=== PATIENT | male | born 1960 | race Caucasian/White ===

== ENCOUNTER 2020-05-17 08:03 | Outpatient (CLI) | payer BC ==
[2020-05-17 08:55] LABS: Estimated GFR-MDRD - POC Greater than 90
[2020-05-17] MEDS ORDERED: Iopamidol 370 76% 100 ML VIAL ONE (13:56)
== END 2020-05-17 08:04 | disposition home or self-care (01) ==
LOC: CT 08:03
PROVIDERS: ATTEND Internal Medicine Gastroenterology
DX: D49.0 Neoplasm of unspecified behavior of digestive system (principal); K63.89 Other specified diseases of intestine; R93.422 Abnormal radiologic findings on diagnostic imaging of left kidney
CPT/HCPCS: 74177; 82565; Q9967

== ENCOUNTER 2020-05-28 11:22 | Outpatient (CLI) | payer BC ==
[~2020-05-28 11:22] MED LIST: Iopamidol 370 76% 100 ML VIAL ONE
--- NOTE | 2020-05-28 13:20 | CT ---
CT CHEST WITH CONTRAST CLINICAL INDICATION: Tumor involving ileum. COMPARISON: None FINDINGS: Aorta: Minimal vascular calcifications at the aortic arch and origin of the left subclavian artery. T horacic aorta is normal in caliber without evidence of an aortic dissection. Lungs: Approximately 4 mm pulmonary nodule is seen in the left lower lobe (image 48, series 3). This is too small to accurately characterize. No additional discrete pulmonary nodule, mass, or pleural effusion is seen in the lungs bilaterally. The large airways are patent. Mediastinum: No enlarged lymph nodes are seen by CT size criteria. Vascular calcifications are seen i n the coronary arteries. Thyroid gland: Normal CT appearance. Osseous structures: No suspicious lytic or sclerotic osseous lesion is identified. Chest wall: No abnormality visualized. Upper abdomen: Mildly prominent lymph nodes are seen in the mindy hepatis as described on recent CT a bdomen. Remainder the visualized upper abdomen has a normal CT appearance. IMPRESSION: 1. Too small to characterize 4 mm pulmonary nodule left lower lobe. No additional pulmonary nodule or mass is seen. 2. Mildly prominent lymph nodes in the region of mindy hepatis also seen on CT abdomen obtained on .
--- NOTE | 2020-05-29 15:24 | NM ---
NM Tumor Localization Octreo HISTORY: Malignant carcinoid tumor of the ileum COMPARISON: None CORRELATION: CT chest of 05/28/[address] abdomen and pelvis of 05/17/2020 RADIOPHARMACEUTICAL: 5.5 mCi indium-111 Octreoscan injected intravenously FINDINGS: Whole body planar images and SPECT-CT images of the abdomen were obtained 24 hours after the intraven ous injection of the radiopharmaceutical. There is physiologic activity in the liver, spleen, kidneys, bladder, bowel. No abnormal foci of increased tracer localization are seen. IMPRESSION: Normal exam.
== END 2020-05-28 11:23 | disposition home or self-care (01) ==
LOC: CT 11:22
PROVIDERS: ATTEND Internal Medicine Hematology & Oncology
DX: C7A.012 Malignant carcinoid tumor of the ileum (principal); C7A.8 Other malignant neuroendocrine tumors; R91.1 Solitary pulmonary nodule
CPT/HCPCS: 71260; 78802; 78803; A4641; A9572; Q9967

== ENCOUNTER 2020-07-04 14:45 | Inpatient (IN) | payer BC ==
[2020-07-08 13:08] VITALS: BMI 32.8
[2020-07-09] MEDS ORDERED: Fentanyl 100 MCG/2 ML VIAL ONE ×3 (10:23→16:43)
[2020-07-09] MEDS ORDERED: Midazolam HCl 2 mg/2 ml Vial ONE (10:23)
[2020-07-09] MEDS ORDERED: cefOXitin Sodium/Dextrose 2 GM/50 ML BAG ONE (10:56)
[2020-07-09] MEDS ORDERED: Ketorolac Tromethamine 30 MG/ML VIAL ONE (10:56)
[2020-07-09] MEDS ORDERED: Acetaminophen 500 MG TAB ONE (10:56)
[2020-07-09] MEDS ORDERED: Lidocaine 1% w/Epinephrine 1:100K 20 ML VIAL ONE (11:20)
[2020-07-09] MEDS ORDERED: Bupivacaine PF 0.5% 30 ML VIAL ONE (11:20)
[2020-07-09] MEDS ORDERED: Rocuronium Bromide 10 MG/ML (10ML VIAL) ONE (12:14)
[2020-07-09] MEDS ORDERED: Glycopyrrolate 0.2 MG/ML 5 ML SYRINGE ONE (12:14)
[2020-07-09] MEDS ORDERED: Bupivacaine HCl 0.5%/Epinephrine 1:200,000/PF 30 ml Vial ONE (12:14)
[2020-07-09] MEDS ORDERED: PHENYLEPHRINE-NS 100 MCG/ML 10 ML SYRINGE ONE (12:14)
[2020-07-09] MEDS ORDERED: Lidocaine 1% PF 5 ML VIAL ONE (12:14)
[2020-07-09] MEDS ORDERED: Ondansetron PF 4 MG/2 ML Vial ONE (12:14)
[2020-07-09] MEDS ORDERED: PROPOFOL 200 MG/20 ML VIAL ONE (12:14)
[2020-07-09] MEDS ORDERED: Dexamethasone 20 MG/5 ML VIAL ONE (12:14)
[2020-07-09] MEDS ORDERED: ceFOXitin 1 GM VIAL ONE ×2 (13:19→14:35)
[2020-07-09] MEDS ORDERED: Ondansetron PF 4 MG/2 ML Vial IVP PRN (15:25)
[2020-07-09] MEDS ORDERED: Acetaminophen 325 MG TAB PO PRN ×2 (15:26→15:27)
[2020-07-09] MEDS ORDERED: traMADol HCl 50 MG TAB PO PRN (15:29)
[2020-07-09] MEDS ORDERED: Sodium Chloride 0.9% (PF) 10 ML VIAL FS PRN (15:30)
[2020-07-09] MEDS ORDERED: HYDROcodone/Acetaminophen 5/325 mg Tablet ONE (18:27)
[2020-07-09] MEDS: D5 1/2 NS w/20 mEq KCL 1,000 ML IV SCH ×2 (20:22→21:53)
[2020-07-09] MEDS: Pantoprazole 40 MG VIAL IVP SCH (20:23)
[2020-07-09] MEDS: cefOXitin Sodium/Dextrose,Iso 2 GM in Premix Bag 1 BAG IVPB SCH (20:31)
[2020-07-09] MEDS: traMADol HCl 50 MG TAB PO PRN (23:59)
[2020-07-10] MEDS: cefOXitin Sodium/Dextrose,Iso 2 GM in Premix Bag 1 BAG IVPB SCH ×2 (03:27→12:02)
[2020-07-10] MEDS: HYDROcodone/Acetaminophen 5/325 mg Tablet PO PRN ×5 (03:29→19:59)
[2020-07-10 05:17] LABS: #Basophils 0.1 thou/uL (0.0-0.2); #Lymphocytes 1.2 thou/uL (1.20-3.40); #Monocytes 1.2 thou/uL (0.11-0.59); #Neutrophils 9.2 thou/uL (1.40-6.50); %Basophils 0.5 % (0.0-1.0); %Eosinophils 0.3 % (0.0-10.0); %Lymphocytes 10.3 % (21.0-51.0); %Neutrophils 78.9 % (42.0-75.0); Hemoglobin 14.9 g/dL (14.0-18.0); Mean Corpuscular HGB CONC 33.7 g/dL (32.0-36.0); Mean Corpuscular Hemoglobin 31.1 pg (27.0-31.0); Mean Corpuscular Volume 92.1 fL (78.0-98.0); Mean Platelet Volume 8.1 fL (7.4-10.4); Platelet Count 188 thou/uL (130-400); RBC Distribution Width 12.2 % (11.5-14.5); Red Blood Cell (RBC) Count 4.81 mill/uL (4.70-6.10); White Blood Cell (WBC) Count 11.7 thou/uL (4.8-10.8)
[2020-07-10 05:34] LABS: ALT (SGPT) 103 U/L (8-55); AST (SGOT) 75 U/L (5-34); Albumin 3.5 g/dL (3.5-5.0); Alkaline Phosphatase 73 U/L (40-110); Anion Gap 13 mmol/L (10-20); BUN (Urea Nitrogen) 8 mg/dL (8.4-25.7); Bilirubin, Total 0.7 mg/dL (0.2-1.2); Calc. Creatinine Clearance 138 mL/min (70-130); Calcium 8.2 mg/dL (7.8-10.44); Carbon Dioxide 25 mmol/L (22-29); Chloride 102 mmol/L (98-107); Globulin 2.8 g/dL (2.4-3.5); Glucose 113 mg/dL (70-105); Potassium 4.3 mmol/L (3.5-5.1); Protein, Total 6.3 g/dL (6.0-8.3); Sodium 136 mmol/L (136-145)
[2020-07-10] MEDS: traMADol HCl 50 MG TAB PO PRN ×3 (05:57→19:28)
[2020-07-10] MEDS: Enoxaparin Sodium 40 MG/0.4 ML SYRINGE SC SCH (08:07)
[2020-07-10] MEDS: Pantoprazole 40 MG VIAL IVP SCH ×2 (08:07→19:28)
[2020-07-10] MEDS: D5 1/2 NS w/20 mEq KCL 1,000 ML IV SCH ×2 (12:12→19:45)
[2020-07-10] MEDS: Ibuprofen 200 MG TAB PO PRN (19:28)
[2020-07-11] MEDS: HYDROcodone/Acetaminophen 5/325 mg Tablet PO PRN ×3 (00:02→11:04)
[2020-07-11] MEDS: Ibuprofen 200 MG TAB PO PRN (04:17)
[2020-07-11] MEDS: traMADol HCl 50 MG TAB PO PRN (06:05)
[2020-07-11] MEDS: D5 1/2 NS w/20 mEq KCL 1,000 ML IV SCH ×2 (06:50→17:44)
[2020-07-11] MEDS: Enoxaparin Sodium 40 MG/0.4 ML SYRINGE SC SCH (09:08)
[2020-07-11] MEDS: Pantoprazole 40 MG VIAL IVP SCH ×3 (09:09→21:26)
[2020-07-11 11:18] LABS: #Basophils 0.1 thou/uL (0.0-0.2); #Eosinphils 0.2 thou/uL (0.0-0.7); #Lymphocytes 1.9 thou/uL (1.20-3.40); #Monocytes 1.3 thou/uL (0.11-0.59); #Neutrophils 7.5 thou/uL (1.40-6.50); %Basophils 1.2 % (0.0-1.0); %Eosinophils 2.2 % (0.0-10.0); %Lymphocytes 17.2 % (21.0-51.0); %Monocytes 12.1 % (0.0-10.0); %Neutrophils 67.3 % (42.0-75.0); Hemoglobin 16.4 g/dL (14.0-18.0); Mean Corpuscular HGB CONC 32.6 g/dL (32.0-36.0); Mean Corpuscular Hemoglobin 30.1 pg (27.0-31.0); Mean Corpuscular Volume 92.3 fL (78.0-98.0); Mean Platelet Volume 7.6 fL (7.4-10.4); Platelet Count 205 thou/uL (130-400); RBC Distribution Width 12.2 % (11.5-14.5); Red Blood Cell (RBC) Count 5.43 mill/uL (4.70-6.10); White Blood Cell (WBC) Count 11.1 thou/uL (4.8-10.8)
[2020-07-11 11:44] LABS: ALT (SGPT) 106 U/L (8-55); AST (SGOT) 85 U/L (5-34); Alkaline Phosphatase 75 U/L (40-110); Anion Gap 12 mmol/L (10-20); BUN (Urea Nitrogen) 7 mg/dL (8.4-25.7); Bilirubin, Total 0.8 mg/dL (0.2-1.2); Calc. Creatinine Clearance 162 mL/min (70-130); Carbon Dioxide 25 mmol/L (22-29); Chloride 103 mmol/L (98-107); Globulin 3.2 g/dL (2.4-3.5); Glucose 99 mg/dL (70-105); Potassium 4.3 mmol/L (3.5-5.1); Protein, Total 7.2 g/dL (6.0-8.3); Sodium 136 mmol/L (136-145)
[2020-07-11] MEDS ORDERED: Morphine 4 MG/ML VIAL SLOW IVP PRN (19:28)
[2020-07-11] MEDS: Morphine 2 MG/ML VIAL SLOW IVP PRN (20:41)
[2020-07-11] MEDS ORDERED: Famotidine/PF 20 mg/2ml Vial SLOW IVP SCH (22:00)
[2020-07-12] MEDS: D5 1/2 NS w/20 mEq KCL 1,000 ML IV SCH ×3 (01:37→20:20)
[2020-07-12] MEDS: Morphine 2 MG/ML VIAL SLOW IVP PRN ×2 (05:01→23:51)
[2020-07-12 06:49] LABS: Band 1 % (5-11); Eosinophils 3 % (0-10); Hemoglobin 15.5 g/dL (14.0-18.0); Lymphocytes 18 % (21-51); MDiff Complete? YES; Mean Corpuscular HGB CONC 32.7 g/dL (32.0-36.0); Mean Corpuscular Volume 91.9 fL (78.0-98.0); Mean Platelet Volume 7.9 fL (7.4-10.4); Monocytes 15 % (0-10); Neutrophil 62 % (42-75); Platelet Count 202 thou/uL (130-400); RBC Distribution Width 12.2 % (11.5-14.5); Reactive Lymphocytes 1 % (0-10); Red Blood Cell (RBC) Count 5.16 mill/uL (4.70-6.10); White Blood Cell (WBC) Count 8.3 thou/uL (4.8-10.8)
[2020-07-12 07:03] LABS: ALT (SGPT) 106 U/L (8-55); AST (SGOT) 91 U/L (5-34); Albumin 3.6 g/dL (3.5-5.0); Alkaline Phosphatase 69 U/L (40-110); Anion Gap 14 mmol/L (10-20); BUN (Urea Nitrogen) 6 mg/dL (8.4-25.7); Calc. Creatinine Clearance 174 mL/min (70-130); Calcium 8.5 mg/dL (7.8-10.44); Carbon Dioxide 23 mmol/L (22-29); Chloride 103 mmol/L (98-107); Globulin 3.1 g/dL (2.4-3.5); Glucose 109 mg/dL (70-105); Protein, Total 6.7 g/dL (6.0-8.3); Sodium 136 mmol/L (136-145)
[2020-07-12] MEDS: Enoxaparin Sodium 40 MG/0.4 ML SYRINGE SC SCH (09:40)
[2020-07-12] MEDS: Famotidine/PF 20 mg/2ml Vial SLOW IVP SCH ×2 (09:40→20:19)
[2020-07-12] MEDS: cefOXitin Sodium/Dextrose,Iso 2 GM in Premix Bag 1 BAG IVPB SCH ×2 (16:44→23:51)
[2020-07-13] MEDS: cefOXitin Sodium/Dextrose,Iso 2 GM in Premix Bag 1 BAG IVPB SCH (08:03)
[2020-07-13] MEDS: D5 1/2 NS w/20 mEq KCL 1,000 ML IV SCH (08:03)
[2020-07-13] MEDS: Enoxaparin Sodium 40 MG/0.4 ML SYRINGE SC SCH (08:05)
[2020-07-13] MEDS: Famotidine/PF 20 mg/2ml Vial SLOW IVP SCH (08:05)
[2020-07-13 11:55] VITALS: BP 139/87; TEMP 98.2
[2020-07-13] MEDS ORDERED: Cephalexin 250 MG CAP PO SCH (12:00)
== END 2020-07-13 13:36 | disposition home or self-care (01) | DRG 330 ==
LOC: EDSTATUS 14:45 → SURG A 07-09 09:31
PROVIDERS: ADMIT Surgery; ATTEND Surgery
PROC: 0DTF0ZZ Resection of Right Large Intestine, Open Approach (ICD-10-PCS; principal; 2020-07-09)
PROC: 0DJ08ZZ Inspection of Upper Intestinal Tract, Via Natural or Artificial Opening Endoscopic (ICD-10-PCS; 2020-07-09)
DX: C7A.012 Malignant carcinoid tumor of the ileum (principal); K56.7 Ileus, unspecified; C7B.01 Secondary carcinoid tumors of distant lymph nodes; F17.210 Nicotine dependence, cigarettes, uncomplicated; K42.9 Umbilical hernia without obstruction or gangrene; K40.90 Unilateral inguinal hernia, without obstruction or gangrene, not specified as recurrent; K26.9 Duodenal ulcer, unspecified as acute or chronic, without hemorrhage or perforation; Z79.899 Other long term (current) drug therapy; Z83.3 Family history of diabetes mellitus; Z80.9 Family history of malignant neoplasm, unspecified
CPT/HCPCS: 36415; 36416; 74018; 80053; 85025; 86677; 88309; C9113; J0694; J1100; J1650; J1885; J2250; J2270; J2405; J2704; J3010; J3480; S0020; S0028

== ENCOUNTER 2020-07-05 08:51 | Outpatient (CLI) | payer BC ==
[2020-07-05 13:02] LABS: Anion Gap 14 mmol/L (10-20); BUN (Urea Nitrogen) 9 mg/dL (8.4-25.7); Calc. Creatinine Clearance 0 mL/min (70-130); Calcium 9.1 mg/dL (7.8-10.44); Carbon Dioxide 26 mmol/L (22-29); Chloride 103 mmol/L (98-107); Glucose 74 mg/dL (70-105); Potassium 4.7 mmol/L (3.5-5.1); Sodium 138 mmol/L (136-145)
[2020-07-05 13:07] LABS: #Basophils 0.1 10x3/uL (0.0-0.2); #Eosinphils 0.6 10x3/uL (0.0-0.5); #Monocytes 1.2 10x3/uL (0.0-1.1); #Neutrophils 3.7 10x3/uL (1.5-8.4); %Basophils 1.2 % (0.0-2.0); %Eosinophils 8.7 % (0.0-6.0); %Lymphocytes 23.4 % (18.0-47.0); %Monocytes 15.7 % (0.0-10.0); %Neutrophils 50.3 % (40.0-75.0); Hemoglobin 16.9 g/dL (13.5-17.5); Mean Corpuscular HGB CONC 33.7 g/dL (32.0-36.0); Mean Platelet Volume 10.4 fl (7.4-10.4); Platelet Count 211 10x3/uL (150-450); RBC Distribution Width 13.2 % (11.5-14.5); Red Blood Cell (RBC) Count 5.63 10x6/uL (4.32-5.72); White Blood Cell (WBC) Count 7.3 10x3/uL (3.5-10.5)
[2020-07-05 16:22] LABS: Hemoglobin A1c 5.5 % (4.0-6.0)
[2020-07-05 23:52] LABS: SARS-CoV-2 PCR by NAA Not Detected (NotDetected)
== END 2020-07-05 08:52 | disposition home or self-care (01) ==
LOC: LABBT 08:51
PROVIDERS: ATTEND Surgery
DX: Z01.818 Encounter for other preprocedural examination (principal); Z20.822 Contact with and (suspected) exposure to COVID-19
CPT/HCPCS: 80048; 83036; 85025; 87635; 93005; 93010; U0003; U0005

== ENCOUNTER 2021-02-10 10:04 | Outpatient (CLI) | payer BC ==
[2021-02-10 13:00] LABS: Anion Gap 14 mmol/L (10-20); BUN (Urea Nitrogen) 11 mg/dL (8.4-25.7); Calc. Creatinine Clearance 0 mL/min (70-130); Calcium 9.1 mg/dL (7.8-10.44); Carbon Dioxide 27 mmol/L (22-29); Chloride 103 mmol/L (98-107); Glucose 145 mg/dL (70-105); Potassium 4.2 mmol/L (3.5-5.1); Sodium 140 mmol/L (136-145)
[2021-02-10 13:04] LABS: Hemoglobin 16.8 g/dL (13.5-17.5); Mean Corpuscular HGB CONC 33.9 g/dL (32.0-36.0); Mean Corpuscular Hemoglobin 30.3 pg (27.0-33.0); Mean Corpuscular Volume 89.5 fl (81.2-95.1); Mean Platelet Volume 10.1 fl (7.4-10.4); Platelet Count 241 10x3/uL (150-450); RBC Distribution Width 13.2 % (11.5-14.5); Red Blood Cell (RBC) Count 5.54 10x6/uL (4.32-5.72); White Blood Cell (WBC) Count 12.4 10x3/uL (3.5-10.5)
[2021-02-10 13:06] LABS: Bilirubin Neg (Negative); Blood, Urine Negative (Negative); Clarity Clear (Clear); Glucose, Urine (Dipstick) Normal (Negative); Ketone, Urine Negative (Negative); Leukocyte 25 (Negative); Nitrite Negative (Negative); Protein, Urine (Dipstick) 15 mg/dl (Neg-Trace); Urobilinogen Normal mg/dL (Less than 2)
[2021-02-10 13:14] LABS: PTT 26.6 sec (22.0-33.0); Prothrombin Time 10.6 sec (9.5-12.1)
[2021-02-10 13:16] LABS: RBC/HPF 0-3 HPF (0-3); Squamous Epithelial 0-3 HPF (0-3); WBC/HPF 0-3 HPF (0-3)
[2021-02-10 13:17] LABS: Bacteria/HPF Rare-Few HPF (None Seen)
[2021-02-10 23:42] LABS: SARS-CoV-2 PCR by NAA Not Detected (NotDetected)
== END 2021-02-10 10:05 | disposition home or self-care (01) ==
LOC: LABBT 10:04
PROVIDERS: ATTEND Urology
DX: Z01.818 Encounter for other preprocedural examination (principal); Z20.822 Contact with and (suspected) exposure to COVID-19
CPT/HCPCS: 80048; 81001; 85027; 85610; 85730; 87086; 93005; 93010; U0003; U0005

== ENCOUNTER 2021-07-25 09:42 | Outpatient (CLI) | payer BC ==
[2021-07-25 10:07] LABS: Estimated GFR-MDRD - POC Greater than 90
[2021-07-25] MEDS ORDERED: Iopamidol-370 76% 500 ML 1 ML ONE (10:11)
== END 2021-07-25 09:43 | disposition home or self-care (01) ==
LOC: BICCT 09:42
PROVIDERS: ATTEND Physician Assistant Medical
DX: D3A.012 Benign carcinoid tumor of the ileum (principal); R79.89 Other specified abnormal findings of blood chemistry; N28.89 Other specified disorders of kidney and ureter
CPT/HCPCS: 74177; 82565; Q9967

== ENCOUNTER 2024-05-30 13:52 | Outpatient (CLI) | payer BC | END 2024-05-30 13:53 | disposition home or self-care (01) | LOC: BICCT 13:52 | PROVIDERS: ATTEND Internal Medicine Gastroenterology | DX: B19.20 Unspecified viral hepatitis C without hepatic coma (principal); R79.89 Other specified abnormal findings of blood chemistry; C7A.012 Malignant carcinoid tumor of the ileum | CPT/HCPCS: 36415; 74177; 82565 ==